=== PATIENT | male | born 1945 | race Caucasian/White ===

== ENCOUNTER 2018-04-03 12:19 | Emergency (ER) | payer OTHER, MEDICARE ==
--- NOTE | 2018-04-03 12:36 | EDPHY ---
H & P Source: Patient Exam Limitations: No limitations Time Seen by Provider: 04/03/18 12:35 HPI/ROS: HPI: This is a 73-year-old male who presents with Chief Complaint: blood clot left calf Location: Left calf Quality: Pain Duration: Several days Signs and Symptoms: No bleeding, no radiation, no numbness, no weakness, no tingling, no incontinence, no decreased range of motion, no swelling, + pain, no fever Timing: Gradual onset Severity: Mild Context: The patient had medial meniscus arthroscopic surgery by Dr. House outpatient on March 27, 2018. Patient went to his follow-up appointment today and complained of several day history of left calf achiness and palpable"lump" on his left calf. He was sent to Radiology for ultrasound which shows DVT in a perennial vein throughout the calf as well as in the gastrocnemius veins. Patient denies chest pain, shortness of breath, skin color changes. He is currently only taking Tylenol for pain relief from his knee surgery. No history of clotting disorders in the family. Patient reports that 1 year ago his primary care's provider said that his renal function was " high normal." Modifying Factors: See above Comment: ROS: A comprehensive 10 system review of systems is otherwise negative aside from elements mentioned in the history of present illness. MEDICAL/SURGICAL/SOCIAL HISTORY: Medical history: Hyperlipidemia, GERD Surgical history: Left medial meniscus arthroscopy Social history: Employed. CONSTITUTIONAL: Well-developed, well-nourished adult male who appears younger than stated age, awake and alert, no obvious distress HEENT: Atraumatic and normocephalic. NECK: supple EXTREMITIES: 2/2 pulses, strength 5/5, KNEE: Healing well portal sites noted. no effusion, no medial and lateral joint line tenderness, full extension to 180, flexion to 120. No pain with varus and valgus exam. No pain with anterior drawer or posterior drawer test. Extensor mechanism intact. Mild tenderness to palpation in calf. No palpable cords. No erythema, warmth. DIP/ PIP/MCP flexion/extension intact with good light touch sensation. no deformities , no clubbing, no cyanosis or edema. NEUROLOGICAL: no focal neuro deficits. GCS 15. Light touch sensation intact. SKIN: Warm and dry, no erythema. no rash. Good capillary refill. (Mary Grace,Terra) Constitutional: Initial Vital Signs Temperature (C) 36.7 C 04/03/18 12:28 Heart Rate 64 04/03/18 12:28 Respiratory Rate 16 04/03/18 12:28 Blood Pressure 184/104 H 04/03/18 12:28 O2 Sat (%) 94 04/03/18 12:28 O2 Delivery Mode Room Air Allergies/Adverse Reactions: trazodone Allergy (Unknown, Verified 04/03/18 12:40) Home Medications: Medication Instructions Recorded ESZOPICLONE [Lunesta] 1 mg PO 07/05/11 Ezetimibe/Simvastatin [Vytorin 1 each PO 07/05/11 10-10 mg Tablet] Omeprazole [Prilosec 20 mg] 20 mg PO DAILY 07/05/11 PIOGLITAZONE HCL [Actos] 15 mg PO 07/05/11 Apixaban [Eliquis 30-day Starter 1 kit PO AD #1 kit 04/03/18 Pack] Medical Decision Making - Diagnostics Imaging Results: Imaging Impressions Extremity Venous Study 04/03/18 10:45 Impression: 1. DVT in a peroneal vein throughout the calf as well as in the gastrocnemius veins. 2. Complex ruptured [place]'s cyst. Findings discussed with ISSA Castañeda for Eloise Foster MD 04/03/2018 at 11:44. ED Course/Re-evaluation: I did not see this patient while he was in the emergency department. However his care was discussed with the PA while the patient was in the department. I agree with treatment plan and management (Stan Dan) Vital signs reviewed and show elevated blood pressure which patient attributes to being anxious about new diagnosis. No prior history of hypertension. Patient reports that his renal function last year was high normal per his PCP. Does not take any blood thinners or NSAIDs regularly. BNP level drawn Given Eliquis 10 mg in the ED and a 30 day starter pack. No signs of neurovascular compromise/tenting of skin/compartment syndrome/ extremities and joints examined above and below area of concern and are neurovascularly intact/compartment syndrome/cellulitis. This patient was seen under the supervision of my secondary supervising physician. I evaluated care for this patient independently. Discussed this patient with Dr. Dan who did not see the patient. 1500: BUN 20, Creatinine 1.3. Notified charge nurse to call patient and updated him on his results. (Becka Brody) Differential Diagnosis: Differential diagnosis includes DVT. (Becka Brody) - Data Points Laboratory Results: Laboratory Results 04/03/18 13:00 04/03/18 13:00 Sodium 139 mEq/L mEq/L (135-145) Potassium 4.4 mEq/L mEq/L (3.5-5.2) Chloride 105 mEq/L mEq/L (97-110) Carbon Dioxide 26 mEq/l mEq/l (22-31) Anion Gap 8 mEq/L mEq/L (6-14) BUN 20 mg/dL mg/dL (7-23) Creatinine 1.3 mg/dL mg/dL (0.7-1.3) Estimated GFR 54 Glucose 101 mg/dL H mg/dL (70-100) Calcium 9.6 mg/dL mg/dL (8.5-10.4) Medications Given: Discontinued Medications Apixaban (Eliquis) 10 mg PO EDNOW ONE Stop: 04/03/18 12:50 Last Admin: 04/03/18 13:09 Dose: 10 mg Departure - Departure Disposition: Home, Routine, Self-Care Clinical Impression: Elevated blood pressure reading Acute deep vein thrombosis (DVT) of left lower extremity Qualifiers: Affected thrombotic vein of extremity: unspecified lower extremity distal vein Qualified Code(s): I82.4Z2 - Acute embolism and thrombosis of unspecified deep veins of left distal lower extremity Condition: Good Instructions: Apixaban (By mouth), Deep Vein Thrombosis (ED), Deep Vein Thrombosis Prevention (ED) Additional Instructions: Take Eliquis as directed in the starter pack. You are given a 30 day supply. You will need to be on this medication for a minimum of 3 months. Please follow-up with your primary care provider in the next 1-2 weeks. Take Tylenol 650 mg every 4 hours as needed for pain. Please refrain from any moderate or strenuous activity x1 week. After 1 week, you may resume normal activity level and exercises status post surgery. Please avoid taking NSAIDs (ibuprofen, Motrin, Advil, Aleve) while taking Eliquis as this can increase your risk of bleeding. The emergency room will call with your laboratory results this afternoon if there are any abnormalities. Your blood pressure was elevated today in the emergency room. Please follow-up with with her primary care provider in the next 3-5 days to assess blood pressure. Return to the ER immediately if you experience redness, red streaks, have fevers /chills, flu like symptoms, limited range of motion, or any other symptoms that concern you. Referrals: Liliana Linn MD [Primary Care Provider] - As per Instructions Prescriptions: Apixaban [Eliquis 30-day Starter Pack] 1 kit PO AD #1 kit
[2018-04-03] MEDS ORDERED: APIXABAN 5 MG TAB PO ONE (12:49)
[2018-04-03 13:24] VITALS: BP 176/102
== END 2018-04-03 13:24 | disposition home or self-care (01) ==
DX: I82.492 Acute embolism and thrombosis of other specified deep vein of left lower extremity (principal); R03.0 Elevated blood-pressure reading, without diagnosis of hypertension; M71.22 Synovial cyst of popliteal space [Baker], left knee

== ENCOUNTER → 2018-06-20 | Outpatient (CLI) | payer OTHER, MEDICARE | DX: M71.22 Synovial cyst of popliteal space [Baker], left knee (principal) ==